=== PATIENT | male | born 1945 | race Caucasian/White ===

== ENCOUNTER 2018-12-12 11:59 | Observation (INO) | payer MEDICARE, OTHER ==
[2018-12-12] MEDS ORDERED: SODIUM CHLORIDE 1,000 ML IV STA (14:14)
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
[2018-12-12] MEDS ORDERED: ACETAMINOPHEN 500 MG TABLET (FP) PO ONE (14:33)
[2018-12-12] MEDS ORDERED: ACETAMINOPHEN 325 MG TABLET (FP) ONE (14:33)
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
[2018-12-12 14:48] LABS: BASO % 0.7 % (0-2.0); EOS % 4.5 % (0-4.5); HEMATOCRIT 50.1 % (35.4-49); HEMOGLOBIN 16.9 GM/dL (11.7-16.9); LYMPH % 19.6 % (8-40); MCH 30.4 pg (25.7-33.7); MCHC 33.8 g/dl (32.0-35.9); MEAN PLT VOLUME 9.2 fl (7.5-11.1); NEUT % 69.2 % (42.8-82.8); PLATELET COUNT 189 K/MM3 (134-434); RBC 5.56 M/mm3 (4.00-5.60); RDW 14.7 % (11.9-15.9); WHITE BLOOD COUNT 9.5 K/mm3 (4.0-10.0)
[2018-12-12 14:59] LABS: INR 1.19 (0.83-1.09); PROTHROMBIN TIME (PATIENT) 14.1 SEC (9.7-13.0)
[2018-12-12 15:04] LABS: VENOUS PC02 41.2 mmHg (38-52); VENOUS PH 7.37 (7.31-7.41)
[2018-12-12 15:06] LABS: VENOUS PO2 < 49 mmHg (28-48)
[2018-12-12 15:15] LABS: ALBUMIN 4.2 g/dl (3.4-5.0); ALK PHOS 143 U/L (45-117); ANION GAP 6 MMOL/L (8-16); BILIRUBIN,TOTAL 1.2 mg/dL (0.2-1); BLOOD UREA NITROGEN 16.8 mg/dL (7-18); CALCIUM 9.2 mg/dL (8.5-10.1); CHLORIDE 106 mmol/L (98-107); CO2 24 mmol/L (21-32); CREATININE 0.8 mg/dL (0.55-1.3); GLUCOSE,RANDOM 169 mg/dL (74-106); MAGNESIUM 1.9 mg/dL (1.8-2.4); POTASSIUM 4.2 mmol/L (3.5-5.1); SGOT/AST 16 U/L (15-37); SGPT/ALT 29 U/L (13-61); SODIUM 136 mmol/L (136-145); TOT PROT 7.7 g/dl (6.4-8.2)
[2018-12-12 15:27] LABS: PH,URINE 5.5 (5.0-8.0); URINE APPEARANCE CLEAR; URINE BILIRUBIN NEGATIVE (NEGATIVE); URINE COLOR YELLOW; URINE GLUCOSE (UA) 3+ (NEGATIVE); URINE KETONE TRACE (NEGATIVE); URINE LEUK ESTERASE NEGATIVE (NEGATIVE); URINE NITRITE NEGATIVE (NEGATIVE); URINE PROTEIN TRACE (NEGATIVE)
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
--- NOTE | 2018-12-12 18:06 | PN ---
Teaching Attending Note Name of Resident: Karen Gomez ATTENDING PHYSICIAN STATEMENT I saw and evaluated the patient. I reviewed the resident's note and discussed the case with the resident. I agree with the resident's findings and plan as documented with exceptions below. SUBJECTIVE: 73 yom with PMhx of DM on intermittent insulin (reports takes based on his blood sugars), HTN, Traumatic brain injury, recently returned from [facility], comes with intermittent dizziness, non positional and high blood sugars 200s for the last few days at home. Patient is a poor historian, daughter assisting in the interview. reports has had blood sugars in 200s, in the last 2 months, has been taking Basalgar insulin intermittently, today took 20 units and came to ED. Also c/o polyuria. Since his flight, has had some low back pain radiating down the legs, but denies any new leg weakness, tingling, numbness, urinary or bowel or incontinence, trauma to the back, headache, vision changes, or new concerns. Initially was noted with unstable gait in the ED, later visualized walking independently to the restroom per discussion with the ED physician. Currently denies any pain or dizziness. OBJECTIVE: Vital Signs Period Temp Pulse Resp BP Sys/Tapia Pulse Ox Last 24 Hr 98.1 F-98.2 F 95-105 18 130-150/84-93 96-98 Intake & Output 12/09/18 12/10/18 12/11/18 12/12/18 23:59 23:59 23:59 23:59 Weight 190 lb GENERAL: Awake, alert, and fully oriented, in no acute distress. HEAD: Normal with no signs of trauma. EYES: Pupils equal, round and reactive to light, extraocular movements intact, sclera anicteric, conjunctiva clear. No lid lag. EARS, NOSE, THROAT: Ears normal, nares patent, oropharynx clear without exudates. Moist mucous membranes. NECK: Normal range of motion, supple, no spinal tenderness, no JVD LUNGS: Breath sounds equal, clear to auscultation bilaterally. No wheezes, and no crackles. No accessory muscle use. HEART: Regular rate and rhythm, normal S1 and S2 ABDOMEN: Soft, nontender, not distended, normoactive bowel sounds, no guarding, no rebound, no masses. No hepatomegaly or splenomegaly. MUSCULOSKELETAL: Normal range of motion at all joints. No bony deformities or tenderness. No CVA tenderness. SLR neg, UPPER EXTREMITIES: 2+ pulses, warm, well-perfused. No cyanosis. No clubbing. No peripheral edema. LOWER EXTREMITIES: 2+ pulses, warm, well-perfused. No calf tenderness. No peripheral edema. No calf tendernes, neg Miguel's sign NEUROLOGICAL: AAOx3, facial symmetry, tongue midline, speech normal EOMI, PERRL , no nystagmus, no pronator drift, power 5/5, sensation intact and symmetric to light touch, Cranial nerves II-XII intact. Normal speech. PSYCHIATRIC: Cooperative. Good eye contact. Appropriate mood and affect. SKIN: Warm, dry, normal turgor, no rashes or lesions noted, normal capillary refill. Home Medications Medication Instructions Recorded Amlodipine Besylate [Norvasc -] 10 mg PO DAILY 12/12/18 Duloxetine HCl [Cymbalta -] 60 mg PO DAILY 12/12/18 Glimepiride [Amaryl -] 4 mg PO DAILY@0700 12/12/18 Insulin Glargine,Hum.rec.anlog 10 unit SQ DAILY 12/12/18 [Basaglar Kwikpen U-100] Sitagliptin Phos/Metformin HCl 1 each PO DAILY 12/12/18 [Janumet 50-1,000 mg Tablet] Valsartan [Diovan] 160 mg PO DAILY 12/12/18 Active Medications Amlodipine Besylate (Norvasc -) 10 mg PO DAILY [facility] Duloxetine HCl (Cymbalta -) 60 mg PO DAILY [facility] Enoxaparin Sodium (Lovenox -) 40 mg SQ DAILY [facility] Insulin Aspart (Novolog Vial Sliding Scale -) 1 vial SQ [facility]; Protocol Insulin Detemir (Levemir Vial) 20 units SQ AM [facility] Valsartan (Diovan -) 160 mg PO DAILY [facility] Laboratory Results - last 24 hr 12/12/18 12/12/18 12/12/18 14:28 14:28 14:28 WBC 9.5 RBC 5.56 Hgb 16.9 Hct 50.1 H MCV 90.0 MCH 30.4 MCHC 33.8 RDW 14.7 Plt Count 189 MPV 9.2 Absolute Neuts (auto) 6.6 Neutrophils % 69.2 Lymphocytes % 19.6 Monocytes % 6.0 Eosinophils % 4.5 Basophils % 0.7 Nucleated RBC % 0 PT with INR 14.10 H INR 1.19 H VBG pH POC VBG pCO2 POC VBG pO2 VBG HCO3 VBG O2 Sat (Vielka) VBG Base Excess Sodium 136 Potassium 4.2 Chloride 106 Carbon Dioxide 24 Anion Gap 6 L BUN 16.8 Creatinine 0.8 Est GFR (CKD-EPI)AfAm 101.99 Est GFR (CKD-EPI)NonAf 88.00 POC Glucometer Random Glucose 169 H Calcium 9.2 Magnesium 1.9 Total Bilirubin 1.2 H AST 16 ALT 29 Alkaline Phosphatase 143 H Creatine Kinase 92 Troponin I < 0.02 Total Protein 7.7 Albumin 4.2 Beta-Hydroxybutyrate Urine Color Urine Appearance Urine pH Ur Specific [place] Urine Protein Urine Glucose (UA) Urine Ketones Urine Blood Urine Nitrite Urine Bilirubin Urine Urobilinogen Ur Leukocyte Esterase 12/12/18 12/12/18 12/12/18 14:28 14:28 15:20 WBC RBC Hgb Hct MCV MCH MCHC RDW Plt Count MPV Absolute Neuts (auto) Neutrophils % Lymphocytes % Monocytes % Eosinophils % Basophils % Nucleated RBC % PT with INR INR VBG pH 7.37 POC VBG pCO2 41.2 POC VBG pO2 < 49 H VBG HCO3 23.2 VBG O2 Sat (Vielka) 69.4 L VBG Base Excess -1.5 Sodium Potassium Chloride Carbon Dioxide Anion Gap BUN Creatinine Est GFR (CKD-EPI)AfAm Est GFR (CKD-EPI)NonAf POC Glucometer Random Glucose Calcium Magnesium Total Bilirubin AST ALT Alkaline Phosphatase Creatine Kinase Troponin I Total Protein Albumin Beta-Hydroxybutyrate 1.7 Urine Color Yellow Urine Appearance Clear Urine pH 5.5 Ur Specific [place] 1.026 Urine Protein Trace Urine Glucose (UA) 3+ H Urine Ketones Trace H Urine Blood Negative Urine Nitrite Negative Urine Bilirubin Negative Urine Urobilinogen 1.0 Ur Leukocyte Esterase Negative 12/12/18 18:01 WBC RBC Hgb Hct MCV MCH MCHC RDW Plt Count MPV Absolute Neuts (auto) Neutrophils % Lymphocytes % Monocytes % Eosinophils % Basophils % Nucleated RBC % PT with INR INR VBG pH POC VBG pCO2 POC VBG pO2 VBG HCO3 VBG O2 Sat (Vielka) VBG Base Excess Sodium Potassium Chloride Carbon Dioxide Anion Gap BUN Creatinine Est GFR (CKD-EPI)AfAm Est GFR (CKD-EPI)NonAf POC Glucometer 112 Random Glucose Calcium Magnesium Total Bilirubin AST ALT Alkaline Phosphatase Creatine Kinase Troponin I Total Protein Albumin Beta-Hydroxybutyrate Urine Color Urine Appearance Urine pH Ur Specific [place] Urine Protein Urine Glucose (UA) Urine Ketones Urine Blood Urine Nitrite Urine Bilirubin Urine Urobilinogen Ur Leukocyte Esterase CT brain results noted EKG NSR, RBBB, LAFB ASSESSMENT AND PLAN: 73 yom with PMHx of DM on intermittent insulin (reports takes based on his blood sugars), HTN, Traumatic brain injury, recently returned from [facility], admitted with dizziness, hyperglycemia and suspect mass vs cyst proximal spinal cord/medulla -Dizziness, suspect from hyperglycemia, r/o arrhythmia (EKG with RBBB/LAFB, no prior available) -Hyperglycemia -Proximal Spinal cord cyst vs mass -Gait instability, improved in ED -Dehydration -HTN Plan: Gentle hydration, ISS, resume oral hypoglycemics inhouse based on clinical course. Per patient, has Basalgar script from PCP which he intermittent takes for elevated blood sugars Check A1c. Telemetry overnight. Neuro Checks MRI brain/C-spine Neurology consulted from ED Neurosurgery input Dr. Harris PT eval Continue home amlodipine/valsartan/duloxetin DVTPPX SCDs pending additional neuro-imaging Dispo pendign above Admit to telemetry obs plan discussed with patient, and daughter and at bedside in detail, all questions answered. Care co-ordinated with ED Total time spent 65 min.
[2018-12-12] MEDS ORDERED: ACETAMINOPHEN 325 MG TABLET (FP) PO PRN (18:24)
[2018-12-12] MEDS: SODIUM CHLORIDE 1,000 ML IV SCH (21:20)
[2018-12-12] MEDS ORDERED: INSULIN (NOVOLOG) ASPART 100 UNITS/ML 10ML VIAL ONE (22:17)
[2018-12-12] MEDS: INSULIN SLIDING SCALE (NOVOLOG) 1 VIAL SQ SCH (22:42)
[2018-12-13 05:42] LABS: EOS % 4.4 % (0-4.5); HEMATOCRIT 45.7 % (35.4-49); HEMOGLOBIN 15.8 GM/dL (11.7-16.9); LYMPH % 16.9 % (8-40); MCH 30.7 pg (25.7-33.7); MCHC 34.6 g/dl (32.0-35.9); MEAN CELL VOLUME 88.9 fl (80-96); MEAN PLT VOLUME 8.9 fl (7.5-11.1); MONO % 5.8 % (3.8-10.2); NEUT % 71.9 % (42.8-82.8); PLATELET COUNT 173 K/MM3 (134-434); RBC 5.14 M/mm3 (4.00-5.60); RDW 14.3 % (11.9-15.9); WHITE BLOOD COUNT 9.4 K/mm3 (4.0-10.0)
[2018-12-13] MEDS ORDERED: ACETAMINOPHEN 325 MG TABLET (FP) ONE ×2 (06:19→08:32)
[2018-12-13 06:26] LABS: ALBUMIN 4.1 g/dl (3.4-5.0); BLOOD UREA NITROGEN 10.2 mg/dL (7-18); CALCIUM 8.3 mg/dL (8.5-10.1); CREATININE 0.6 mg/dL (0.55-1.3); MAGNESIUM 1.6 mg/dL (1.8-2.4); PHOSPHOROUS 2.3 mg/dL (2.5-4.9); POTASSIUM 3.6 mmol/L (3.5-5.1); TOT PROT 7.4 g/dl (6.4-8.2)
[2018-12-13] MEDS ORDERED: MAGNESIUM SULF 50% (8.12 MEQ/2 ML-1 GM VIAL) IVPB ONE (06:44)
[2018-12-13] MEDS: INSULIN (LEVEMIR) 100 UNITS/ML UNITS SQ SCH (07:00)
[2018-12-13] MEDS ORDERED: INSULIN (LEVEMIR) 100 UNITS/ML UNITS SQ SCH (07:00)
[2018-12-13] MEDS: INSULIN SLIDING SCALE (NOVOLOG) 1 VIAL SQ SCH ×4 (07:30→22:58)
[2018-12-13] MEDS ORDERED: MAGNESIUM SULF 50% (8.12 MEQ/2 ML-1 GM VIAL) ONE (07:58)
[2018-12-13] MEDS ORDERED: MAGNESIUM 1GM/D5W - 1 GM/100 ML IVPB IVPB ONE (07:59)
[2018-12-13] MEDS: VALSARTAN 160 MG TABLET (UD) PO SCH (09:00)
[2018-12-13] MEDS: DULoxetine HCL 30 MG CAPSULE.DR PO SCH (09:00)
[2018-12-13] MEDS: NYSTATIN 100,000 UNIT/GM TOPICAL CREAM 15 GM TUBE TP SCH ×2 (09:00→23:00)
[2018-12-13] MEDS: amLODIPine BESYLATE 10 MG TABLET (FP) PO SCH (09:56)
[2018-12-13] MEDS: NAPH,MB-DB/K PH,MBDB POWDER PACKET PO SCH ×2 (09:56→21:26)
[2018-12-13] MEDS: MAGNESIUM OXIDE 400 MG TABLET (FP) PO SCH ×2 (09:59→21:26)
[2018-12-13] MEDS ORDERED: ENOXAPARIN NA (PORCINE) 40 MG/0.4 ML DISP.SYRIN SQ SCH (10:00)
--- NOTE | 2018-12-13 11:02 | EKG ---
Test Reason : Blood Pressure : / mmHG Vent. Rate : 092 BPM Atrial Rate : 092 BPM P-R Int : 170 ms QRS Dur : 140 ms QT Int : 402 ms P-R-T Axes : 035 -53 001 degrees QTc Int : 497 ms NORMAL SINUS RHYTHM RIGHT BUNDLE BRANCH BLOCK LEFT ANTERIOR FASCICULAR BLOCK BIFASCICULAR BLOCK ABNORMAL ECG NO PREVIOUS ECGS AVAILABLE Confirmed by NOHEMY BRAGG, LAMIN ([id number]) on 12/13/2018 11:01:52 AM Referred By: Confirmed By:LAMIN SLATER MD
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
--- NOTE | 2018-12-13 13:08 | ECHO ---
Name: ALMODOVARMARBELLA Barton Exam:Adult Echocardiogram Study Date: 12/13/2018 09:33 AM Age: 73 yrs Reason For Study: LV Function Height: 64 in Weight: 190 lb BSA: 1.9 m2 MMode/2D Measurements & Calculations IVSd: 1.1 cm Ao root diam: 3.0 cm LVIDd: 3.9 cm LA dimension: 3.1 cm LVIDs: 2.9 cm LVPWd: 0.90 cm EDV(Teich): 64.8 ml LVOT diam: 2.0 cm ESV(Teich): 31.2 ml LAV (MOD-bp): 34.3 ml Doppler Measurements & Calculations MV E max salazar: 77.7 cm/sec Ao V2 max: 156.1 cm/sec MV A max saalzar: 136.7 cm/sec Ao max P.7 mmHg MV E/A: 0.57 AI P1/2t: 235.1 msec MV dec time: 0.09 sec FELIX(V,D): 2.4 cm2 AI max salazar: 206.3 cm/sec LV V1 max P.9 mmHg AI max P.0 mmHg LV V1 max: 121.7 cm/sec AI dec slope: 257.0 cm/sec2 PA V2 max: 122.2 cm/sec Med Peak E' Salazar: 12.9 cm/sec PA max P.0 mmHg Med E/e': 6.0 Lat Peak E' Salazar: 5.3 cm/sec Lat E/e': 14.6 Procedure A two-dimensional transthoracic echocardiogram with color flow and Doppler was performed. The study w as technically difficult with many images being suboptimal in quality. Left Ventricle The left ventricular size, thickness and function are normal. The left ventricular ejection fraction is normal. E/A reversal consistent with but not diagnostic of poor LV compliance. The left ventricular w all motion is normal. Right Ventricle The right ventricle is not well visualized. Atria Normal left and right atrial size and function. Mitral Valve There is mild mitral valve thickening. There is no mitral valve stenosis. There is trace mitral regur gitation. Tricuspid Valve The tricuspid valve is not well visualized. There is no tricuspid stenosis. There was insufficient TR detected to calculate RV systolic pressure. Aortic Valve The aortic valve is not well visualized. No hemodynamically significant valvular aortic stenosis. No aortic regurgitation is present. Pulmonic Valve The pulmonic valve is not well visualized. Great Vessels The aortic root is normal size. Pericardium/Pleura There is no pericardial effusion. Interpretation Summary The study was technically difficult with many images being suboptimal in quality. The left ventricular size, thickness and function are normal The left ventricular ejection fraction is normal. The left ventricular wall motion is normal. E/A reversal consistent with but not diagnostic of poor LV compliance There is trace mitral regurgitation. There was insufficient TR detected to calculate RV systolic pressure. MD Stefano Maciel 12/13/2018 01:07 PM
--- NOTE | 2018-12-13 13:38 | PN ---
Progress Note (short form) - Note Progress Note: NEUROSURGERY History obtained Pt examined Head CT reviewed HTN, DM, and traumatic brain injury c/o one week of dizziness and weakness with walking. Also two days of increased urinary frequency. Some chronic difficulty with ambulation though has past h/o LBP also. Mild H/A near vertex, no N/V. No Sz. No fever/chill. No h/a cancer. PE: AF, VSS General- unremarkable, obese; distal B LE chronic venous changes with mild edena Speech fluent in Arabic Labs reviewed CN- intact II-XII; MOtor- 5/5 without drift; Sensation- intact LT and vibration ; DTR- hyporeflexia B, toes downgoing; Gait- slightly hunched over and slow Head CT- mild atrophy; anterior lower medullary hypodensity; r/o arachnoid cyst vs epidermoid Brain MRI with and without selena to r/o skull base/craniocervical junction arachnoid cyst vs epidermoid (though bilateral epidermal rare) DM with probable peripheral neuropathy Son at bedside Plan for brain MRI with/without selena discussed with pt and son D/w printer repair technician
--- NOTE | 2018-12-13 15:23 | PN ---
Teaching Attending Note Name of Resident: Shai Lyman ATTENDING PHYSICIAN STATEMENT I saw and evaluated the patient. I reviewed the resident's note and discussed the case with the resident. I agree with the resident's findings and plan as documented with exceptions below. SUBJECTIVE: Patient seen and examined. no complaints overnight. OBJECTIVE: Vital Signs Period Temp Pulse Resp BP Sys/Tapia Pulse Ox Last 24 Hr 97.9 F-98.1 F 95-99 18-20 135-156/92-94 96-96 Intake & Output 12/10/18 12/11/18 12/12/18 12/13/18 23:59 23:59 23:59 23:59 Weight 190 lb General: sitting in bed in no acute distress neck: soft, supple Chest: CTAB, no rales or wheezing Abdomen:Soft, obese, NT Musculoskeletal: no spinal tenderness NEUROLOGICAL: AAOx3, facial symmetry, tongue midline, speech normal EOMI, PERRL , no nystagmus, no pronator drift, power 5/5, sensation intact and symmetric to light touch, normal speech, unchanged exam Home Medications Medication Instructions Recorded Amlodipine Besylate [Norvasc -] 10 mg PO DAILY 12/12/18 Duloxetine HCl [Cymbalta -] 60 mg PO DAILY 12/12/18 Glimepiride [Amaryl -] 4 mg PO DAILY@0700 12/12/18 Insulin Glargine,Hum.rec.anlog 10 unit SQ DAILY 12/12/18 [Basaglar Kwikpen U-100] Sitagliptin Phos/Metformin HCl 1 each PO DAILY 12/12/18 [Janumet 50-1,000 mg Tablet] Valsartan [Diovan] 160 mg PO DAILY 12/12/18 Active Medications Acetaminophen (Tylenol -) 650 mg PO Q6H PRN PRN Reason: PAIN Last Admin: 12/13/18 09:57 Dose: 650 mg Amlodipine Besylate (Norvasc -) 10 mg PO DAILY SRINIVASA Last Admin: 12/13/18 09:56 Dose: 10 mg Duloxetine HCl (Cymbalta -) 60 mg PO DAILY SRINIVASA Last Admin: 12/13/18 09:00 Dose: 60 mg Sodium Chloride (Normal Saline -) 1,000 mls @ 75 mls/hr IV ASDIR SRINIVASA Last Admin: 12/12/18 21:20 Dose: 75 mls/hr Insulin Aspart (Novolog Vial Sliding Scale -) 1 vial SQ ACHS [facility]; Protocol Last Admin: 12/13/18 12:42 Dose: 2 units Insulin Detemir (Levemir Vial) 10 units SQ AM [facility] Last Admin: 12/13/18 07:00 Dose: 10 units Magnesium Oxide (Mag-Ox -) 400 mg PO BID [facility] Stop: 12/13/18 22:01 Last Admin: 12/13/18 09:59 Dose: 400 mg Nystatin (Mycostatin Cream -) 1 applic TP BID [facility] Last Admin: 12/13/18 09:00 Dose: 1 unit Potassium Phos/Sodium Phos (Phos-Nak Packet -) 1 packet PO BID [facility] Stop: 12/13/18 22:01 Last Admin: 12/13/18 09:56 Dose: 1 packet Valsartan (Diovan -) 160 mg PO DAILY [facility] Last Admin: 12/13/18 09:00 Dose: 160 mg Laboratory Results - last 24 hr 12/12/18 12/12/18 12/12/18 15:20 18:01 22:37 WBC RBC Hgb Hct MCV MCH MCHC RDW Plt Count MPV Absolute Neuts (auto) Neutrophils % Lymphocytes % Monocytes % Eosinophils % Basophils % Nucleated RBC % Sodium Potassium Chloride Carbon Dioxide Anion Gap BUN Creatinine Est GFR (CKD-EPI)AfAm Est GFR (CKD-EPI)NonAf POC Glucometer 112 184 Random Glucose Hemoglobin A1c % Calcium Phosphorus Magnesium Total Bilirubin AST ALT Alkaline Phosphatase Total Protein Albumin Urine Color Yellow Urine Appearance Clear Urine pH 5.5 Ur Specific [place] 1.026 Urine Protein Trace Urine Glucose (UA) 3+ H Urine Ketones Trace H Urine Blood Negative Urine Nitrite Negative Urine Bilirubin Negative Urine Urobilinogen 1.0 Ur Leukocyte Esterase Negative 12/13/18 12/13/18 12/13/18 05:33 05:33 05:33 WBC 9.4 RBC 5.14 Hgb 15.8 Hct 45.7 MCV 88.9 MCH 30.7 MCHC 34.6 RDW 14.3 Plt Count 173 MPV 8.9 Absolute Neuts (auto) 6.8 Neutrophils % 71.9 Lymphocytes % 16.9 Monocytes % 5.8 Eosinophils % 4.4 Basophils % 1.0 Nucleated RBC % 0 Sodium 134 L Potassium 3.6 Chloride 103 Carbon Dioxide 20 L Anion Gap 10 BUN 10.2 Creatinine 0.6 Est GFR (CKD-EPI)AfAm 114.80 Est GFR (CKD-EPI)NonAf 99.05 POC Glucometer Random Glucose 157 H Hemoglobin A1c % 8.4 H Calcium 8.3 L Phosphorus 2.3 L Magnesium 1.6 L Total Bilirubin 2.0 H AST 18 ALT 27 Alkaline Phosphatase 107 Total Protein 7.4 Albumin 4.1 Urine Color Urine Appearance Urine pH Ur Specific [place] Urine Protein Urine Glucose (UA) Urine Ketones Urine Blood Urine Nitrite Urine Bilirubin Urine Urobilinogen Ur Leukocyte Esterase 12/13/18 12/13/18 08:21 12:36 WBC RBC Hgb Hct MCV MCH MCHC RDW Plt Count MPV Absolute Neuts (auto) Neutrophils % Lymphocytes % Monocytes % Eosinophils % Basophils % Nucleated RBC % Sodium Potassium Chloride Carbon Dioxide Anion Gap BUN Creatinine Est GFR (CKD-EPI)AfAm Est GFR (CKD-EPI)NonAf POC Glucometer 170 175 Random Glucose Hemoglobin A1c % Calcium Phosphorus Magnesium Total Bilirubin AST ALT Alkaline Phosphatase Total Protein Albumin Urine Color Urine Appearance Urine pH Ur Specific [place] Urine Protein Urine Glucose (UA) Urine Ketones Urine Blood Urine Nitrite Urine Bilirubin Urine Urobilinogen Ur Leukocyte Esterase ASSESSMENT AND PLAN: 73 yom with PMHx of DM on intermittent insulin (reports takes based on his blood sugars), HTN, Traumatic brain injury, recently returned from [facility], admitted with dizziness, hyperglycemia and suspect mass vs cyst proximal spinal cord/medulla -Dizziness, suspect from hyperglycemia, r/o arrhythmia (EKG with RBBB/LAFB, no prior available) -Hyperglycemia -Proximal Spinal cord cyst vs mass -Gait instability, improved in ED -Dehydration -HTN Plan: No events on telemetry, 2D echo noted. Gentle hydration A1c noted, suspect poor blood glucose control with associated dehydration/ Neuropathy contributory to symptoms on presentation. continue levemir, ISS, resume . Daughter and patient counseled on need for compliance with insulin, close home BGM monitoring and PCP/endocrine follow up. Await MRI brain/C-spine Neurology/neurosurgery input noted. Neuro checks. PT eval Continue home amlodipine/valsartan/duloxetine DVTPPX SCDs pending additional neuro-imaging Dispo pending above, dc in 24 hours if w/u non revealing and no new concerns. Admit to telemetry obs plan discussed with patient, and daughter at bedside in detail, all questions answered.
[2018-12-13 16:43] VITALS: BMI 30.2
[2018-12-13] MEDS ORDERED: FLU VACCINE QUAD 60 MCG/0.5 ML (MDV 19-20) IM ONE (16:43)
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
[2018-12-13] MEDS ORDERED: PT OWN MED DRAWER 7, Y5N ONE (17:45)
[2018-12-13] MEDS ORDERED: CEFTRIAXONE 1 GM in DEXTROSE 5%-WATER - 50 ML IVPB SCH (17:45)
[2018-12-13] MEDS ORDERED: DEXTROSE 5%-WATER - 50 ML IVPB ONE (17:49)
[2018-12-13] MEDS ORDERED: cefTRIAXone SODIUM 1 GM VIAL ONE (17:49)
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
[2018-12-13] MEDS: SODIUM CHLORIDE 1,000 ML IV SCH (21:33)
[2018-12-14 04:34] VITALS: BP 126/81; PULSE 100; TEMP 98.6
[2018-12-14] MEDS: INSULIN SLIDING SCALE (NOVOLOG) 1 VIAL SQ SCH ×2 (06:15→11:59)
[2018-12-14] MEDS: INSULIN (LEVEMIR) 100 UNITS/ML UNITS SQ SCH (06:15)
[2018-12-14] MEDS ORDERED: sitaGLIPtin PHOSPHATE 50 MG TABLET PO SCH (07:00)
[2018-12-14 08:54] LABS: BLOOD UREA NITROGEN 12.5 mg/dL (7-18); CALCIUM 8.5 mg/dL (8.5-10.1); CREATININE 0.7 mg/dL (0.55-1.3); MAGNESIUM 2.1 mg/dL (1.8-2.4); PHOSPHOROUS 2.7 mg/dL (2.5-4.9); POTASSIUM 3.7 mmol/L (3.5-5.1)
[2018-12-14] MEDS: VALSARTAN 160 MG TABLET (UD) PO SCH (09:36)
[2018-12-14] MEDS: DULoxetine HCL 30 MG CAPSULE.DR PO SCH (09:36)
[2018-12-14] MEDS: NYSTATIN 100,000 UNIT/GM TOPICAL CREAM 15 GM TUBE TP SCH (09:38)
[2018-12-14] MEDS: amLODIPine BESYLATE 10 MG TABLET (FP) PO SCH (09:38)
[2018-12-14] MEDS ORDERED: CEFUROXIME AXETIL 500 MG TABLET PO SCH (10:00)
--- NOTE | 2018-12-14 10:38 | PN ---
Progress Note (short form) - Note Progress Note: NEUROSURGERY HTN, DM, and traumatic brain injury c/o one week of dizziness and weakness with walking. Also two days of increased urinary frequency. Some chronic difficulty with ambulation though has past h/o LBP also. Mild H/A near vertex, no N/V, no Sz. No fever/chill. No h/o cancer. PE: AF, VSS General- unremarkable, obese; distal B LE chronic venous changes with mild edena Speech fluent in [place] Sitting up at bedside CN- intact II-XII; Motor- 5/5 without drift; Sensation- intact LT and vibration ; DTR- hyporeflexia B, toes downgoing; Gait- slightly hunched over and slow Head CT- mild atrophy; anterior lower medullary hypodensity; r/o arachnoid cyst vs epidermoid Brain MRI with and without selena- no enhancing neoplasm; dominant R vertebral artery; prominent CSF intensity anterior and lateral to the lower medulla (with localized mass effect) not involving the upper cervical canal (C1-3) and no stenosis; no edema, no HCP, no acute ischemia, + moderate atrophy DM with probable peripheral neuropathy No neurosurgical intervention indicated nor recommended Brain CT/MRI findings are chronic and benign in appearance unlikely related to his current increased symptoms Medical evaluation/treatment only Daughter at bedside and aware of the above
[2018-12-14] MEDS ORDERED: INSULIN (NOVOLOG) ASPART 100 UNITS/ML 10ML VIAL ONE (11:59)
--- NOTE | 2018-12-14 13:43 | DS ---
Physical Exam: SUBJECTIVE: Patient seen and examined OBJECTIVE: Vital Signs Period Temp Pulse Resp BP Sys/Tapia Pulse Ox Last 24 Hr 98.4 F-98.8 F 88-101 18-20 121-158/65-88 97-100 PHYSICAL EXAM GENERAL: The patient is awake, alert, and fully oriented, in no acute distress. HEAD: Normal with no signs of trauma. No temporal wasting EYES: extraocular movements intact, sclera anicteric, conjunctiva w/o pallor. Peripheral visual gong intact ENT: Ears normal, nares patent, moist mucous membranes. NECK: Trachea midline, full range of motion, supple. LUNGS: Breath sounds equal, clear to auscultation bilaterally, no wheezes, no crackles, no accessory muscle use. HEART: Regular rate and rhythm, S1, S2 without murmur, rub or gallop. ABDOMEN: Soft, nontender, nondistended, normoactive bowel sounds, no guarding, no rebound, no hepatosplenomegaly, no masses. EXTREMITIES: 2+ pulses, warm, well-perfused, no edema. NEUROLOGICAL: Cranial nerves II through XII grossly intact. Normal speech. Wide standing base. Short irreg gait PSYCH: Normal mood, normal affect. SKIN: Warm, dry, normal turgor, no rashes or lesions noted LABS Laboratory Results - last 24 hr 12/13/18 12/13/18 12/14/18 16:55 22:50 04:51 Sodium Potassium Chloride Carbon Dioxide Anion Gap BUN Creatinine Est GFR (CKD-EPI)AfAm Est GFR (CKD-EPI)NonAf POC Glucometer 190 212 141 Random Glucose Calcium Phosphorus Magnesium Vitamin B12 RPR Titer 12/14/18 12/14/18 12/14/18 07:05 07:05 11:42 Sodium 132 L Potassium 3.7 Chloride 98 Carbon Dioxide 26 Anion Gap 8 BUN 12.5 Creatinine 0.7 Est GFR (CKD-EPI)AfAm 107.75 Est GFR (CKD-EPI)NonAf 92.97 POC Glucometer 183 Random Glucose 134 H Calcium 8.5 Phosphorus 2.7 Magnesium 2.1 Vitamin B12 190 L RPR Titer Nonreactive HOSPITAL COURSE: Date of Admission:12/13/18 Date of Discharge: 12/14/18 73 y/o male with a history of HTN, DM, and traumatic brain injury who is admitted for dizziness and change in lower extremity movement. CT(12/12/18) was neg intracranial process, effacement of proximal spinal cord and medulla; possible arachnoid cyst vs ependymoma. NSX and Neuro were consulted. MRI was recommended which shoed a dominant Right vertebral artery, no mass. NSX rec no surgical intervention. Pt's symptoms improved spontaneously. Walked with PT for 200ft w/ steady gait. Echo(12/13/18) w/ technical difficulties, normal LV size/ thickness/function. UCX grew Ecoli, given ceftriaxone but patient asymptomatic so abx was dc. Stable for dc home. Minutes to complete discharge: 20 Discharge Summary Problems reviewed: Yes Reason For Visit: DIZZINESS Condition: Stable - Instructions Diet, Activity, Other Instructions: You were evaluated for dizziness and trouble with walking. Labwork showed poorly controlled diabetes, some low electrolytes. Initially there was concern for a brain lesion but MRI imaging showed that it was an artery. Your symptoms improved without specific treatments. Your ability to walk improved. Please follow-up with the physicians below: - PCP: for continued diabetes management and bloodwork(electrolytes, magnesium, phosphorous) follow-up - Neurology(Dr Mitul Walker): for continued discussion of the occasional dizziness and trouble walking Medications: - NEW medications: no new medications - resume all regular home medications Additional instructions: - reduce fall risks - normal activity as tolerated - diet: try to maintain a healthy heart diet of low sugars, low fat, high fiber - You will need to have your A1c (Diabetes marker) rechecked, Please discuss this further with your PC Please seek immediate medical attention or go to the Emergency Department if you experience: - severe dizziness, nausea, vomiting, severe headache, weakness Referrals: Mitul Walker DO [Staff Physician] - Fredrick Roldan MD [Primary Care Provider] - Disposition: HOME - Home Medications Comprehensive Discharge Medication List: Ambulatory Orders Amlodipine Besylate [Norvasc -] 10 mg PO DAILY 12/12/18 Duloxetine HCl [Cymbalta -] 60 mg PO DAILY 12/12/18 Glimepiride [Amaryl -] 4 mg PO DAILY@0700 12/12/18 Insulin Glargine,Hum.rec.anlog [Basaglar Kwikpen U-100] 10 unit SQ DAILY Sitagliptin Phos/Metformin HCl [Janumet 50-1,000 mg Tablet] 1 each PO DAILY Valsartan [Diovan] 160 mg PO DAILY 12/12/18 This patient is new to me today: No Emergency Visit: No Critical Care patient: No - Discharge Referral Referred to [facility] No ATTENDING PHYSICIAN STATEMENT I saw and evaluated the patient. I reviewed the resident's note and discussed the case with the resident. I agree with the resident's findings and plan as documented. SUBJECTIVE: OBJECTIVE: ASSESSMENT AND PLAN:
--- NOTE | 2018-12-14 15:44 | PN ---
Teaching Attending Note Name of Resident: Shai Lyman ATTENDING PHYSICIAN STATEMENT I saw and evaluated the patient. I reviewed the resident's note and discussed the case with the resident. I agree with the resident's findings and plan as documented with exceptions below. SUBJECTIVE: Patient seen and examined. Feels better, no complaints. OBJECTIVE: Vital Signs Period Temp Pulse Resp BP Sys/Tapia Pulse Ox Last 24 Hr 98.4 F-98.8 F 88-101 18-20 121-158/65-88 97-100 Intake & Output 12/11/18 12/12/18 12/13/18 12/14/18 23:59 23:59 23:59 23:59 Intake Total 150 600 Output Total 600 600 Balance -450 0 Weight 190 lb 179 lb General: sitting in bed in no acute distress neck: soft, supple Chest: CTAB, no rales or wheezing Abdomen:soft, NT extremities: no edema Home Medications Medication Instructions Recorded Amlodipine Besylate [Norvasc -] 10 mg PO DAILY 12/12/18 Duloxetine HCl [Cymbalta -] 60 mg PO DAILY 12/12/18 Glimepiride [Amaryl -] 4 mg PO DAILY@0700 12/12/18 Insulin Glargine,Hum.rec.anlog 10 unit SQ DAILY 12/12/18 [Basaglar Kwikpen U-100] Sitagliptin Phos/Metformin HCl 1 each PO DAILY 12/12/18 [Janumet 50-1,000 mg Tablet] Valsartan [Diovan] 160 mg PO DAILY 12/12/18 ASSESSMENT AND PLAN: 73 yom with PMHx of DM on intermittent insulin (reports takes based on his blood sugars), HTN, Traumatic brain injury, recently returned from [facility], admitted with dizziness, hyperglycemia and suspect mass vs cyst proximal spinal cord/medulla -Dizziness, suspect from hyperglycemia, r/o arrhythmia (EKG with RBBB/LAFB, no prior available) -Hyperglycemia -Proximal Spinal cord cyst vs mass -Gait instability, improved in ED -Dehydration -HTN Plan: MRI brain noted, discussed with Dr. Harris, no concerns. No events on tele Diabetic education provided PT aleeal noted d/c home today.
== END 2018-12-14 13:11 | disposition home or self-care (01) ==
LOC: JER 11:59 → JERBED 16:40 → UNDOADMOB 16:40 → OBSVTOIN 17:26 → INTOOBSV 17:26 → JERBED 12-13 15:28 → J4W 12-13 15:28 → JERBED 12-13 15:42 → J4W 12-13 15:42
PROVIDERS: ADMIT Hospitalist; ATTEND Hospitalist
PROC: 3E03329 Introduction of Other Anti-infective into Peripheral Vein, Percutaneous Approach (ICD-10-PCS; principal; 2018-12-13)
PROC: 3E033GC Introduction of Other Therapeutic Substance into Peripheral Vein, Percutaneous Approach (ICD-10-PCS; 2018-12-13)
PROC: 3E0337Z Introduction of Electrolytic and Water Balance Substance into Peripheral Vein, Percutaneous Approach (ICD-10-PCS; 2018-12-13)
PROC: 3E013VG Introduction of Insulin into Subcutaneous Tissue, Percutaneous Approach (ICD-10-PCS; 2018-12-13)
PROC: 3E0234Z Introduction of Serum, Toxoid and Vaccine into Muscle, Percutaneous Approach (ICD-10-PCS; 2018-12-13)
DX: R42 Dizziness and giddiness (principal); R26.0 Ataxic gait; E11.65 Type 2 diabetes mellitus with hyperglycemia; E86.0 Dehydration; D49.89 Neoplasm of unspecified behavior of other specified sites; G31.9 Degenerative disease of nervous system, unspecified; N39.0 Urinary tract infection, site not specified; I10 Essential (primary) hypertension; Z79.84 Long term (current) use of oral hypoglycemic drugs; Z79.4 Long term (current) use of insulin; Z87.820 Personal history of traumatic brain injury; E66.9 Obesity, unspecified; Z68.30 Body mass index [BMI] 30.0-30.9, adult; M54.5 Low back pain; Z23 Encounter for immunization
CPT/HCPCS: 36415; 70450-TC; 70552-TC; 71046-TC-FY; 80048; 80053; 81003; 82010; 82550; 82607; 82803; 82962; 83036; 83735; 84100; 84484; 85025; 85610; 86593; 87086; 87186; 87389; 90471; 93005; 93010; 93306-TC; 96361; 96372; 96374; 96375; 97116-GP; 97161-GP; 99285-25; G0378; J7030; Q2036

== ENCOUNTER 2018-12-15 16:16 | Emergency (ER) | payer MEDICARE, OTHER ==
[2018-12-15 16:24] VITALS: TEMP 98.8; BMI 26.9
--- NOTE | 2018-12-15 16:26 | PDOC ---
Rapid Medical Evaluation Time Seen by Provider: 12/15/18 16:20 Medical Evaluation: Allergies Allergy/AdvReac Type Severity Reaction Status Date / Time No Known Drug Allergies Allergy Verified 12/12/18 12:35 12/15/18 16:20 I have performed a brief in-person evaluation of this patient. The patient presents with a chief complaint of: Chest burning, difficulty breathing, urinary incontinence and worsening neuropathy. Pt was discharged yesterday from the floor, went to PMD today who sent him back to the ER Pertinent physical exam findings: anxious affect I have ordered the following: EKG, cardiac labs, UA The patient will proceed to the ED for further evaluation. Discharge Disposition - Diagnosis Chest discomfort - Referrals Referrals: Fredrick Roldan MD [Primary Care Provider] - - Patient Instructions - Post Discharge Activity
[2018-12-15 17:04] LABS: BASO % 0.9 % (0-2.0); EOS % 5.7 % (0-4.5); HEMATOCRIT 48.8 % (35.4-49); HEMOGLOBIN 16.6 GM/dL (11.7-16.9); MCH 29.9 pg (25.7-33.7); MEAN CELL VOLUME 87.9 fl (80-96); MEAN PLT VOLUME 9.7 fl (7.5-11.1); MONO % 8.3 % (3.8-10.2); NEUT % 69.1 % (42.8-82.8); PLATELET COUNT 210 K/MM3 (134-434); RBC 5.55 M/mm3 (4.00-5.60); RDW 14.1 % (11.9-15.9); WHITE BLOOD COUNT 11.4 K/mm3 (4.0-10.0)
[2018-12-15 18:12] LABS: EPI CELLS 1.7 /HPF (0-5/HPF); HYALINE CASTS 8 /lpf (0-8); PH,URINE 5.5 (5.0-8.0); URINE APPEARANCE CLEAR; URINE BACTERIA 0.3 /hpf (NEGATIVE); URINE BILIRUBIN NEGATIVE (NEGATIVE); URINE COLOR DK YELLOW; URINE GLUCOSE (UA) 3+ (NEGATIVE); URINE KETONE 2+ (NEGATIVE); URINE LEUK ESTERASE NEGATIVE (NEGATIVE); URINE NITRITE NEGATIVE (NEGATIVE); URINE PROTEIN 2+ (NEGATIVE); URINE RBC 1 /hpf (0-4); URINE WBC 2 /hpf (0-5)
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
[2018-12-15 18:34] LABS: ALBUMIN 4.3 g/dl (3.4-5.0); BILIRUBIN,TOTAL 2.4 mg/dL (0.2-1); BLOOD UREA NITROGEN 22.9 mg/dL (7-18); CALCIUM 8.6 mg/dL (8.5-10.1); CREATININE 0.9 mg/dL (0.55-1.3); POTASSIUM 3.9 mmol/L (3.5-5.1); TOT PROT 7.6 g/dl (6.4-8.2)
[2018-12-15] MEDS ORDERED: SODIUM CHLORIDE 0.9% 500 ML INFUS.BAG IV ONE ×2 (18:42→23:27)
--- NOTE | 2018-12-15 20:53 | PDOC ---
Documentation entered by Karen Smith SCRIBE, acting as scribe for Guzman Cleary MD. Guzman Cleary MD: This documentation has been prepared by the lemuelibeLuis Lincy, SCRIBE, under my direction and personally reviewed by me in its entirety. I confirm that the documentation accurately reflects all work, treatment, procedures, and medical decision making performed by me. Attending Attestation - Resident Resident Name: Pedro Kimbrough - ED Attending Attestation I have performed the following: I have examined & evaluated the patient, The case was reviewed & discussed with the resident, I agree w/resident's findings & plan, Exceptions are as noted - HPI HPI: 12/15/18 19:36 The patient is a 73-year-old male with a past medical history significant for HTN, DM, and TBI (2 years ago, denies follow up) who was sent to the emergency department by PCP (Dr. Hernan Roldan) for chest pain and tremors. The patient reports he had an episode of chest pain this morning and reports tremors secondary to being anxious. The patients daughter reports he was feeling very weak and fatigued yesterday and today, and the PCP was concerned and sent the patient in for future management. Denies headaches or vision changes. The daughter reports since being discharged from the hospital, the patient hasnt been eating and sleeping. The daughter states hes having difficulty staying asleep secondary to itching and burning sensation. Denies fever or chills. Allergies: NKDA Social history: R. knee replacement and Abdominal surgery PCP: Dr. Hernan Roldan - Physicial Exam PE: 12/15/18 19:01 GENERAL: The patient is awake, alert, and fully oriented, Nontoxic - in no acute distress. HEAD: Normocephalic, atraumatic. EYES: extraocular movements intact, sclera anicteric, conjunctiva clear. ENT: Normal voice, Moist mucous membranes. NECK: Normal range of motion, supple LUNGS: Breath sounds equal, clear to auscultation bilaterally. No wheezes, no rhonchi, no rales. HEART: Regular rate and rhythm, normal S1 and S2 without murmur, rub or gallop. ABDOMEN: Soft, nontender, No guarding, no rebound. No CVA tenderness EXTREMITIES: Normal range of motion, no edema. NEUROLOGICAL: No facial assymetry, Normal speech, strength symmetric in upper and lower extremities. sensation intact thoughout PSYCH: Normal mood, normal affect. SKIN: Warm, Dry, normal turgor, - Medical Decision Making 12/15/18 19:02 73y hx of htn, dm, recently dx from [facility] and sent back to the ED from Dr Ye office - pt had an episode of chest pain this morning and was noted to be vey shaky and anxious at the office. p denies any current pain, fever/chills, n/v, headache, vision chnges, numbness/tingling/weakness, back pain. On exam the has an unremarkable nonfocal exam. will recheck his labs will check his trop fluids for hydration will reasess 12/15/18 19:08 labs noted for hyponatremia ck also noted elevated - unclera reason - will hydrate and reasess 12/15/18 23:52 Patient's labs were repeated they are improved after hydration the patient's heart rate is also normalized. Patient is feeling improved will discharge patient with PMD follow-up, return precautions were discussed I discussed the physical exam findings, ancillary test results and final diagnoses with the patient. I answered all of the patient's questions. The patient was satisfied with the care received and felt comfortable with the discharge plan and treatment plan. The patient will call their primary care physician within 24 hours to arrange follow-up and will return to the Emergency Department with any new, persistent or worsening symptoms.
[2018-12-15 21:26] LABS: EOS % 5.9 % (0-4.5); HEMATOCRIT 46.5 % (35.4-49); HEMOGLOBIN 16.2 GM/dL (11.7-16.9); LYMPH % 18.1 % (8-40); MCH 30.6 pg (25.7-33.7); MCHC 34.9 g/dl (32.0-35.9); MEAN CELL VOLUME 87.7 fl (80-96); MEAN PLT VOLUME 8.7 fl (7.5-11.1); MONO % 9.1 % (3.8-10.2); NEUT % 65.9 % (42.8-82.8); PLATELET COUNT 171 K/MM3 (134-434); RDW 14.3 % (11.9-15.9); WHITE BLOOD COUNT 10.1 K/mm3 (4.0-10.0)
[2018-12-15 22:01] LABS: ALBUMIN 4.2 g/dl (3.4-5.0); BILIRUBIN,TOTAL 2.1 mg/dL (0.2-1); BLOOD UREA NITROGEN 18.8 mg/dL (7-18); CALCIUM 8.2 mg/dL (8.5-10.1); CREATININE 0.8 mg/dL (0.55-1.3); POTASSIUM 3.7 mmol/L (3.5-5.1); TOT PROT 7.3 g/dl (6.4-8.2)
[2018-12-15 22:03] LABS: BILIRUBIN,DIRECT 0.5 mg/dL (0.0-0.2)
[2018-12-15 23:50] VITALS: BP 159/92; PULSE 97
--- NOTE | 2018-12-16 20:22 | EKG ---
Test Reason : Blood Pressure : / mmHG Vent. Rate : 100 BPM Atrial Rate : 100 BPM P-R Int : 158 ms QRS Dur : 138 ms QT Int : 378 ms P-R-T Axes : 036 -66 -07 degrees QTc Int : 487 ms NORMAL SINUS RHYTHM RIGHT BUNDLE BRANCH BLOCK LEFT ANTERIOR FASCICULAR BLOCK BIFASCICULAR BLOCK POSSIBLE LATERAL INFARCT , AGE UNDETERMINED ABNORMAL ECG WHEN COMPARED WITH ECG OF 12-DEC-2018 15:33, NO SIGNIFICANT CHANGE WAS FOUND Confirmed by MD KIT, LETI ([id number]) on 12/16/2018 8:22:18 PM Referred By: Confirmed By:LETI PANTOJA MD
== END 2018-12-15 23:55 | disposition home or self-care (01) ==
LOC: JER 16:16
PROC: 3E0337Z Introduction of Electrolytic and Water Balance Substance into Peripheral Vein, Percutaneous Approach (ICD-10-PCS; principal; 2018-12-15)
DX: R07.9 Chest pain, unspecified (principal); E87.1 Hypo-osmolality and hyponatremia; I10 Essential (primary) hypertension; E11.9 Type 2 diabetes mellitus without complications; Z79.4 Long term (current) use of insulin
CPT/HCPCS: 36415; 80053; 81003; 82247; 82248; 82550; 82553; 84484; 85025; 87086; 93005; 93010; 99283-25